=== PATIENT | female | born 1955 | race Caucasian/White ===

== ENCOUNTER 2016-06-09 10:11 | Emergency (ER) | payer OTHER ==
[2016-06-09 11:44] LABS: ALBUMIN 3.8 g/dL (3.4-4.8); BILIRUBIN - TOTAL 0.4 mg/dL (0.1-1.0); CREATININE 0.6 mg/dL (0.5-1.0); GLOBULIN (CALCULATION) 3.7 g/dL (2.2-4.2); TOTAL PROTEIN 7.5 g/dL (6.4-8.3)
[2016-06-09 11:47] LABS: POTASSIUM 5.3 mmol/L (3.5-5.1)
[2016-06-09 11:50] LABS: BASOPHIL 0.3 % (0-2); EOSINOPHIL 0.9 % (0-5); HCT 33.1 % (37.0-47.0); HGB 10.6 g/dl (12.5-16.0); LYMPHOCYTE 26.7 % (15-48); MCH 27.7 pg (25.0-31.0); MCV 86.6 fL (78.0-100.0); MONOCYTE 11.1 % (0-12); MPV 10.5 fL (6.0-9.5); PLT 382 K/uL (150-400); RBC 3.82 M/uL (4.20-5.40); RDW 12.7 % (11.5-14.0); WBC 6.8 K/uL (4.0-10.5)
[2016-06-09 11:52] LABS: BILIRUBIN NEGATIVE (NEGATIVE); BLOOD TRACE-INTACT Ery/uL (NEGATIVE); CLARITY CLEAR (CLEAR); COLOR YELLOW (YELLOW); GLUCOSE (U) NORMAL (NORMAL); KETONE (U) NEGATIVE (NEGATIVE); LEUKOCYTES NEGATIVE Leu/uL (NEGATIVE); NITRITE NEGATIVE (NEGATIVE); PROTEIN TRACE (LOW) mg/dL (NEGATIVE); UROBILINOGEN 0.2 mg/dL (0.2-1.0); pH 6.5 (5.0-9.0)
[2016-06-09 11:53] LABS: SQUAMOUS EPITHELIAL CELLS RARE; URINARY RBC RARE; URINARY WBC RARE
== END 2016-06-09 14:20 | disposition home or self-care (01) ==
LOC: FER 10:11
PROVIDERS: Emergency Medicine
DX: J45.901 Unspecified asthma with (acute) exacerbation (principal); Z79.51 Long term (current) use of inhaled steroids
CPT/HCPCS: 36415; 80053; 81001; 83690; 85025; 87088; J1885; J2405; Q9967